=== PATIENT | male | born 1960 | race Caucasian/White ===

== ENCOUNTER 2017-08-04 14:29 | Emergency (ER) | payer OTHER ==
[~2017-08-04] VITALS: Ht 188 cm; Wt 93.0 kg
[2017-08-04] MEDS ORDERED: QUINAPRIL HCL20 MG PO (14:35)
[2017-08-04 17:47] LABS: ABSOLUTE NEUTROPHILS 9.9 thou/uL (1.4-8.2); EOSINOPHILS 1.3 % (0.0-3.0); HEMATOCRIT 42.3 % (42.0-52.0); HEMOGLOBIN 14.8 gm/dL (14.0-18.0); LYMPHOCYTES 8.3 % (24.0-44.0); MCH 31.1 pg (26.0-34.0); MCHC 34.9 g/dL (28.0-37.0); MCV 89.2 fL (80.0-100.0); MONOCYTES 2.8 % (1.0-8.0); PLATELET COUNT 294 thou/uL (150-400); POLYS 86.6 % (36.0-66.0); RBC 4.75 mil/uL (4.50-6.00); RDW 12.8 % (10.5-14.5); WBC 11.4 thou/uL (4.0-11.0)
[2017-08-04 17:55] LABS: AMP/METHAMP Negative (Negative); BARBITURATES Negative (Negative); BENZODIAZEPINES Negative (Negative); COCAINE POSITIVE (Negative); METHADONE Negative (Negative); OPIATES Negative (Negative); PCP Negative (Negative)
[2017-08-04 17:57] LABS: ANION GAP 9 mmol/L (7-16); BUN 14 mg/dL (7-18); CALCIUM 9.1 mg/dL (8.5-10.1); CHLORIDE 103 mmol/L (98-107); CO2 27 mmol/L (21-32); CREATININE 1.1 mg/dL (0.7-1.3); GLUCOSE 216 mg/dL (74-106); POTASSIUM 4.4 mmol/L (3.5-5.1); SODIUM 139 mmol/L (136-145)
[2017-08-04 18:01] LABS: ALBUMIN 3.7 g/dL (3.4-5.0); DIRECT BILIRUBIN 0.1 mg/dL (<0.1-0.3); SALICYLATE 4.3 mg/dL (2.8-20.0); SGOT 21 U/L (15-37); SGPT 26 U/L (30-65); TOTAL BILIRUBIN 0.6 mg/dL (<0.1-1.0); TOTAL PROTEIN 6.8 g/dL (6.4-8.2)
[2017-08-04 18:46] VITALS: BP 130/88
== END 2017-08-04 18:47 | disposition home or self-care (01) ==
LOC: ER 14:29
PROVIDERS: Emergency Medicine
DX: F20.9 Schizophrenia, unspecified (principal); F12.10 Cannabis abuse, uncomplicated; F14.10 Cocaine abuse, uncomplicated; I10 Essential (primary) hypertension

== ENCOUNTER 2017-12-09 11:33 | Emergency (ER) | payer OTHER ==
[~2017-12-09] VITALS: Ht 190.5 cm; Wt 87.1 kg
[~2017-12-09 11:33] MED LIST: QUINAPRIL HCL20 MG PO
[2017-12-09] MEDS ORDERED: CLOTRIMAZOLE 1%15 G1 TOP (12:44)
[2017-12-09] MEDS ORDERED: KEFLEX500 M1 PO (12:44)
[2017-12-09 13:37] VITALS: BP 143/90
== END 2017-12-09 13:38 | disposition home or self-care (01) ==
LOC: ER 11:33
DX: L03.116 Cellulitis of left lower limb (principal); L03.115 Cellulitis of right lower limb; B35.3 Tinea pedis; I10 Essential (primary) hypertension; F20.9 Schizophrenia, unspecified